=== PATIENT | female | born 1940 | race Caucasian/White ===

== ENCOUNTER 2018-10-22 19:27 | Inpatient (IN) | payer OTHER ==
--- OUTSIDE RECORDS SUMMARY | 2018-10-22 19:29 | XMS REPORT | Clinical Summary ---
:1940 Author Organization [facility] Address [address] [place] [address] Care Team Providers Name Role Phone Agent, Rosalinda Black MD Primary Care Provider Allergies Active Allergy Reactions Severity Noted Date Comments Codeine 03/07/2016 Medications Medication Sig Dispensed Refills Start Date End Date Status rOPINIRole (REQUIP) 2 Take 4 mg by 0 12/26/2015 Active MG tablet mouth every 4 (four) hours as needed (restless syndrome). ZETIA 10 mg tablet Take 10 mg by 0 12/30/2015 Active mouth every morning. ELIQUIS 5 mg tablet Take 5 mg by 0 02/05/2016 Active mouth 2 (two) times a day. Pt takes 1 am and 1 pm atorvastatin Take 40 mg by 0 01/12/2016 Active (LIPITOR) 40 MG mouth nightly. tablet ALPRAZolam (XANAX) Take 0.5 mg by 0 12/22/2015 Active 0.5 MG tablet mouth 2 (two) times a day as needed for anxiety. HYDROcodone-acetamino Take 1-2 tablets 0 03/29/2016 Active phen (NORCO) 10-325 by mouth every 6 mg per tablet (six) hours as needed for pain. allopurinol Take 100 mg by 0 08/16/2016 Active (ZYLOPRIM) 100 MG mouth 3 (three) tablet times a day. furosemide (LASIX) 40 Take 40 mg by 0 08/16/2016 Active mg tablet mouth every morning. MYRBETRIQ 50 mg Take 50 mg by 0 06/04/2016 Active tablet extended mouth every release 24 hr morning. MOVANTIK 25 mg tablet Take 25 mg by 0 08/01/2016 Active tablet mouth daily as needed. ferrous sulfate 325 Take 325 mg by 0 Active (65 FE) MG tablet mouth every morning. amLODIPine (NORVASC) Take 2.5 mg by 0 07/30/2016 Active 2.5 mg tablet mouth daily as needed. If BP > 120 / 80 take insulin lispro Inject 1 Units 0 Active (HumaLOG) 100 unit/mL under the skin injection continuously. Humalog pump. Midnight the range is 1.5 Units/ hr and it switches at 0430 to 1.7 units / hr gabapentin Take 300 mg by 0 11/19/2011 Active (NEURONTIN) 300 mg mouth 4 (four) capsule times a day. PT takes 1 am, 1 noon and 2=dose of 600 mg at night traMADol (ULTRAM) 50 Take 1 tablet 15 tablet 0 12/28/2017 01/02/2018 mg tablet (50 mg total) by mouth every 6 (six) hours as needed for moderate pain for up to 5 days. Active Problems Problem Noted Date Falls 08/25/2016 Weakness 05/31/2016 Urinary tract infection 05/11/2016 Cervical stenosis of spinal canal 04/18/2016 Physical debility 04/18/2016 Transient cerebral ischemia 04/12/2016 Encounters Date Type Specialty Care Team Description 12/28/2017 Emergency Emergency Medicine Amandeep Phillips MD Dislocation of right shoulder joint, initial encounter (Primary Dx); Fall, initial encounter after 10/21/2017 Family History Medical History Relation Name Comments Heart disease Father Hypertension Father Stroke Father Cancer Mother Diabetes Mother Relation Name Status Comments Father Mother Social History Tobacco Use Types Packs/Day Years Used Date Former Smoker Cigarettes 1 15 Quit: 06/01/1967 Tobacco Cessation: Counseling Given: No Alcohol Use Drinks/Week oz/Week Comments No Sex Assigned at Date Recorded Not on file Job Start Date Occupation Industry Not on file Not on file Not on file Travel History Travel Start Travel End No recent travel history available. Last Filed Vital Signs Not on file Plan of Treatment Health Maintenance Due Date Last Done Comments SHINGLES VACCINES (#1) 07/01/1989 65+ PNEUMOCOCCAL VACCINE (1 of 2 - 07/01/2004 PCV13) INFLUENZA VACCINE 09/17/2018 11/22/2015, 12/17/2013, 10/29/2012, Additional history exists Implants Implanted Type Area Voice Over Artist Device Shelf Model / Identifier Expiration Date Serial / Lot Diabetic Diabetic Supplies Supplies Procedures Procedure Name Priority Date/Time Associated Diagnosis Comments XR SHOULDER 2+ VW STAT 12/28/2017 3:16 AM Results for this RIGHT DENTAL INTERNSHIP procedure are in the results section. CT HEAD WO CONTRAST STAT 12/28/2017 3:04 AM Results for this DENTAL INTERNSHIP procedure are in the results section. after 10/21/2017 Results XR Shoulder 2+ Vw Right (12/28/2017 3:16 AM [employer]) Specimen Narrative Performed At EXAMINATION:XR SHOULDER 2VW RIGHT [facility] CLINICAL HISTORY:RT Shoulder Pain COMPARISON:None IMPRESSION: There is a collapsed appearance of the right humeral head with sclerosis, most compatible with underlying avascular necrosis. Humeral head appears to be wedged on the anterior aspect of the glenoid, an appearance compatible with partial dislocation/subluxation. No definite soft tissue swelling is seen. [id number] Procedure Note Interface, Radiology Results Incoming - 12/28/2017 5:38 AM [employer]AL INTERNSHIP EXAMINATION: XR SHOULDER 2 VW RIGHT CLINICAL HISTORY: RT Shoulder Pain COMPARISON: None IMPRESSION: There is a collapsed appearance of the right humeral head with sclerosis, most compatible with underlying avascular necrosis. Humeral head appears to be wedged on the anterior aspect of the glenoid, an appearance compatible with partial dislocation/subluxation. No definite soft tissue swelling is seen. [facility]-[id number] Performing Organization Address City/State/Zipcode Phone Number [facility] [address] [place] [address] CT Head Wo Contrast (12/28/2017 3:04 AM [facility]) Specimen Narrative Performed At EXAMINATION: CT HEAD WO CONTRAST [facility] CLINICAL HISTORY: R O INTRACRANIAL HEMORRHAGE COMPARISON:08/24/2016 TECHNIQUE: Noncontrast enhanced images of the brain were obtained from the skull base to the vertex. Both soft tissue and bone reconstruction algorithms were performed. CT imaging was performed with iterative reconstruction technique and/or automated exposure control to reduce radiation dose. IMPRESSION: No intracranial hemorrhage, mass, mass effect, or herniation. Age-related volume loss is seen as characterized by prominence of cerebral sulci and ventricular systems. Periventricular and subcortical white matter hypodensities are seen, compatible with sequelae of chronic small vessel ischemic disease. Atherosclerotic calcification of intracranial vasculature. No acute osseous abnormalities. Mild mucosal thickening of right maxillary sinus. CONCLUSION: No acute intracranial abnormalities. Chronic age-related changes and sequelae of chronic small vessel ischemic disease. [facility]-[id number] Procedure Note Interface, Radiology Results Incoming - 12/28/2017 4:58 AM D[facility]AL INTERNSHIP EXAMINATION: CT HEAD WO CONTRAST CLINICAL HISTORY: R O INTRACRANIAL HEMORRHAGE COMPARISON: 08/24/2016 TECHNIQUE: Noncontrast enhanced images of the brain were obtained from the skull base to the vertex. Both soft tissue and bone reconstruction algorithms were performed. CT imaging was performed with iterative reconstruction technique and/or automated exposure control to reduce radiation dose. IMPRESSION: No intracranial hemorrhage, mass, mass effect, or herniation. Age-related volume loss is seen as characterized by prominence of cerebral sulci and ventricular systems. Periventricular and subcortical white matter hypodensities are seen, compatible with sequelae of chronic small vessel ischemic disease. Atherosclerotic calcification of intracranial vasculature. No acute osseous abnormalities. Mild mucosal thickening of right maxillary sinus. CONCLUSION: No acute intracranial abnormalities. Chronic age-related changes and sequelae of chronic small vessel ischemic disease. [facility]-[id number] Performing Organization Address City/State/Zipcode Phone Number [facility] [address] [place] [address] after 10/21/2017 Insurance Payer Benefit Plan / Subscriber ID Effective Dates Phone Address Type Group HUMANA MEDICARE HUMANA MEDICARE xxxxxxxxx 2017-Present PPO PPO/PFFS/ERS MCR Advance Directives For more information, please contact: [phone] Type Date Recorded Patient Extruder Operator Multiple Explanation Advance Directives, Living Will 08/24/2016 9:35 PM and Medical Power of Parts Interpreter Code Status Date Activated Date Inactivated Comments Full Code 05/11/2016 10:03 PM 05/13/2016 3:54 PM Code Status decision reached by: Patient Full Code 04/12/2016 10:48 PM 04/18/2016 8:52 PM Code Status decision reached by: Patient
--- OUTSIDE RECORDS SUMMARY | 2018-10-22 19:30 | XMS REPORT ---
:1940 [facility] Address [address] [place] [address] Care Team Providers Name Role Phone Unavailable Unavailable Unavailable Payers Payer Name Policy Type Policy Number Effective Date Expiration Date Problems This patient has no known problems. Allergies, Adverse Reactions, Alerts Allergy Allergy Status Severity Reaction(s) Onset Inactive Treating Comments Name Type Date Date Clinician jayson FISCHER Active NM 2012-09 00:00:0 0 Medications This patient has no known medications. Results Test Description Test Time Test Comments Text Results Atomic Results Result Comments GLUBED 2018-05-29 18:29:00 Test Item Value Reference Range Comments GLUBED (test code=GLUBED) 188 MG/DL 70-110 Performed by certified can closing machine operator at [facility] [id number] 12:35:00 Test Item Value Reference Range Comments GLUBED (test code=GLUBED) 108 MG/DL 70-110 Performed by certified can closing machine operator at [facility] [id number] 08:11:00 Test Item Value Reference Range Comments GLUBED (test code=GLUBED) 91 MG/DL 70-110 Performed by certified can closing machine operator at [facility] [id number] 21:15:00 Test Item Value Reference Range Comments GLUBED (test code=GLUBED) 197 MG/DL 70-110 Performed by certified can closing machine operator at [facility] [id number] 17:38:00 Test Item Value Reference Range Comments GLUBED (test code=GLUBED) 233 MG/DL 70-110 Performed by certified can closing machine operator at [facility] [id number] 13:21:00 Test Item Value Reference Range Comments GLUBED (test code=GLUBED) 190 MG/DL 70-110 Performed by certified can closing machine operator at [facility] [id number] 08:26:00 Test Item Value Reference Range Comments GLUBED (test code=GLUBED) 103 MG/DL 70-110 Performed by certified can closing machine operator at [facility] [id number] 03:57:00 Test Item Value Reference Range Comments GLUBED (test code=GLUBED) 126 MG/DL 70-110 Performed by certified can closing machine operator at [facility] URINALYSIS [id number] 22:10:00 Test Item Value Reference Range Comments UA COLOR (test code=COLU) YELLOW YEL/STRAW UA APPEARANCE (test code=APPU) CLEAR CLEAR UA GLUCOSE DIPSTICK (test code=DGLUU) NEGATIVE NEGATIVE UA BILIRUBIN DIPSTICK (test code=BILU) NEGATIVE NEGATIVE UA KETONE DIPSTICK (test code=KETU) NEGATIVE NEGATIVE UA SPECIFIC GRAVITY (test code=SGU) 1.010 1.005-1.030 UA BLOOD DIPSTICK (test code=MAINE) 1+ NEGATIVE UA PH DIPSTICK (test code=TERA) 5.0 5.0-7.0 UA PROTEIN DIPSTICK (test code=PROU) 2+ NEGATIVE UA UROBILINIOGEN DIPSTICK (test code=URO) 0.2 mg/dL 0.2-1.0 UA NITRITE DIPSTICK (test code=BRIT) NEGATIVE NEGATIVE UA LEUKOCYTE ESTERASE DIPSTICK (test 2+ NEGATIVE code=LEUU) UA WBC (test code=WBCU) 21-50 WBC/HPF 0-3 UA RBC (test code=RBCU) 4-10 RBC/HPF 0-3 UA BACTERIA (test code=BACU) TRACE /HPF NONE SEEN UA SQUAMOUS CELLS (test code=SQU) 0-5 /HPF NONE SEEN [id number] 21:44:00 Test Item Value Reference Range Comments GLUBED (test code=GLUBED) 75 MG/DL 70-110 Performed by certified can closing machine operator at [facility] B-TYPE NATRIURETIC [id number] 20:33:00 Test Item Value Reference Range Comments B-TYPE NATRIURETIC PEPTIDE (test code=BNP) 229.1 PG/ML 0-100 COMPREHENSIVE METABOLIC [id number] 20:12:00 Test Item Value Reference Range Comments SODIUM (test code=NA) 143 mEq/L 134-147 POTASSIUM (test code=K) 4.0 mEq/L 3.4-5.0 CHLORIDE (test code=CL) 112 mEq/L 100-108 CARBON DIOXIDE (test code=CO2) 26 mEq/L 21-33 ANION GAP (test code=GAP) 9 0-20 GLUCOSE (test code=GLU) 103 mg/dL 70-110 BLOOD UREA NITROGEN (test 23 mg/dL 7-18 code=BUN) GLOMERULAR FILTRATION RATE 60.6 70-80 Units of (test code=GFR) measure=ml/min/1.73 m2 CREATININE (test code=CREAT) 0.9 mg/dL 0.6-1.3 TOTAL PROTEIN (test code=PROT) 6.9 g/dL 6.4-8.2 ALBUMIN (test code=ALB) 3.50 g/dL 3.4-5.0 CALCIUM (test code=CA) 8.8 mg/dL 8.0-10.5 BILIRUBIN TOTAL (test 0.40 mg/dL 0.0-1.0 code=BILT) SGOT/AST (test code=AST) 20 IUnit/L 15-37 SGPT/ALT (test code=ALT) 23 IUnit/L 15-65 ALKALINE PHOSPHATASE TOTAL 74 IUnit/L 20-125 (test code=ALKP) CPK-MB [id number] 20:12:00 Test Item Value Reference Range Comments CREATINE KINASE (CK) (test 163 35-232 Result is in INTERNATIONAL code=CK) UNITS/LITER CKMB (test code=CKMBT) 5.7 ng/mL 0-5.0 CUT OFF:>5 ng/mL is suggested as being consistent with AMI. RELATIVE % INDEX (test 3.4 % 0.0-2.5 *CK-MB INTERPRETATION* code=REL%) NORMAL: <5 ng/ml & <2.5% INDEX ABNORMAL: >5 ng/ml & >2.5% INDEX LANDRY ZONE: >5 ng/ml & <2.5% INDEX - SUGGEST CPK ISOENZYME BY ELECTROPHORESIS *PLEASE NOTE* A LOW TOTAL CK MAY CALCULATE TO A FALSELY ELEVATED INDEX. PROTHROMBIN [id number] 20:07:00 Test Item Value Reference Range Comments PROTHROMBIN TIME PATIENT 14.3 SECONDS 9.3-12.9 (test code=PTP) INTERNATIONAL NORMAL RATIO 1.3 0.8-1.2 TARGET INR BY (test code=INR) INDICATION Indication INR1. Prophylaxis of venous thrombosis 2.0 - 3.0 (orthopedic surgery), Prophylaxis of venous thrombosis (other than high-risk surgery), Treatment of Deep Vein Thrombosis/Pulmonary Embolism, Prevention of systemic embolism - Tissue heart valves, Acute Myocardial Infarction (to prevent systemic embolism), Valvular heart disease, Atrial Fibrillation, Bileaflet mechanical valve in aortic position.2. Mechanical prosthetic valves (high risk), 2.5 - 3.5 Presence of Lupus Anticoagulant or Antiphospholipid Antibodies, Prevention of systemic embolism - Acute Myocardial Infarction (to prevent recurrent infarct). THROMBOPLASTIN TIME [id number] 20:07:00 Test Item Value Reference Range Comments THROMBOPLASTIN TIME PARTIAL 35.5 Seconds 25.0-39.5 Therapeutic Range: (test code=PTT) 61.8-83.8 Sec Effective 03/17/2013 - XR CHEST 1 [id number] 19:53:00 FAX: Medhat Osorio DO [place]: St: REG Name: MIRANDA VALERO [facility] : 1940 Age/S: 77/F [address] [place] [address] Unit#: [id number] Loc: JORGE Segura [place] [address] Phys: Medhat Osorio DO Acct: [id number] Dis Date: Status: REG ER PHONE #: [phone] Exam Date: 05/27/20181940 FAX #: [phone] Reason: cp EXAMS: CPT CODE: [id number] XR CHEST 1 V [id number] Clinical Indication : cp Comparison: January 21, 2017 FINDINGS: The frontal chest radiograph shows normal lung volumes. No interstitial or airspace opacities are seen. No pleural effusions are present. No pneumothorax is seen. The heart is enlarged. The trachea is midline. Hardware fusing the cervical spine are present. There are no clinically significant osseous abnormalities noted. IMPRESSION: 1. No chest radiographic evidence of acute cardiopulmonary disease. 2. Stable cardiomegaly. SL: [id number] Electronically Signed by Pat Acosta on 2018 at 1952 Reported and signed by: Josh Acosta M.D. CC: Medhat Osorio DO Technologist: Ginger Lewis, RT(R); Rola Tariq RT(R) Trnscrd Date/Time/By: 05/27/2018 (1952) : By: PolinaLNV Orig Print D/T: S: 05/27/2018 (1956) PAGE 1 Signed ReportTROPONIN-I [id number] 19:43:00 Test Item Value Reference Range Comments TROPONIN-I RAPID (test 0.00 ng/mL 0.00-0.08 Performed by certified can closing machine operator code=TROPIRAP) at [facility] Negative: <=0.08 Positive: >=0.09An elevated troponin value alone is not sufficient todiagnose a myocardial infarction. Rather, the patient sclinical presentation (history, physical exam) and ECGshould be used in conjunction with troponin in thediagnostic evaluation of suspected myocardial infarction. Aserial sampling protocol is recommended to facilitate the identification of temporal changes in troponin levels characteristic of NM. CBC W/AUTO [id number] 19:42:00 Test Item Value Reference Range Comments WHITE BLOOD CELL (test code=WBC) 8.20 x10 3/uL 4.5-11.0 RED BLOOD CELL (test code=RBC) 3.76 x10 6/uL 3.54-5.02 HEMOGLOBIN (test code=HGB) 11.1 g/dL 11.0-15.0 HEMATOCRIT (test code=HCT) 33.3 % 33.0-45.0 MEAN CELL VOLUME (test code=MCV) 88.6 fL 81.0-99.0 MEAN CELL HGB (test code=MCH) 29.5 pg 27.0-33.0 MEAN CELL HGB CONCETRATION (test code=MCHC) 33.3 g/dL 33.0-37.0 RED CELL DISTRIBUTION WIDTH CV (test code=RDW) 14.6 % 11.5-14.5 RED CELL DISTRIBUTION WIDTH SD (test 46.9 fL 37.0-54.0 code=RDW-SD) PLATELET COUNT (test code=PLT) 269 x10 3/uL 150-400 MEAN PLATELET VOLUME (test code=MPV) 10.6 fL 7.0-9.0 NEUTROPHIL % (test code=NT%) 58.6 % 56.0-77.0 IMMATURE GRANULOCYTE % (test code=IG%) 0.4 % 0.0-2.0 LYMPHOCYTE % (test code=LY%) 28.8 % 14.0-32.0 MONOCYTE % (test code=MO%) 8.2 % 4.8-9.0 EOSINOPHIL % (test code=EO%) 3.4 % 0.3-3.7 BASOPHIL % (test code=BA%) 0.6 % 0.0-2.0 NUCLEATED RBC % (test code=NRBC%) 0.0 % 0-0 NEUTROPHIL # (test code=NT#) 4.81 x10 3/uL 2.0-7.6 IMMATURE GRANULOCYTE # (test code=IG#) 0.03 x10 3/uL 0.00-0.03 LYMPHOCYTE # (test code=LY#) 2.36 x10 3/uL 1.0-3.8 MONOCYTE # (test code=MO#) 0.67 x10 3/uL 0.1-0.8 EOSINOPHIL # (test code=EO#) 0.28 x10 3/uL 0.0-0.2 BASOPHIL # (test code=BA#) 0.05 x10 3/uL 0.0-0.2 NUCLEATED RBC # (test code=NRBC#) 0.00 x10 3/uL 0.0-0.1 MANUAL DIFF REQUIRED (test code=MDIFF) NO
--- OUTSIDE RECORDS SUMMARY | 2018-10-22 19:30 | XMS REPORT | Continuity of Care Document ---
:1940 Author Organization [facility] [employer] Care Team Providers Name Role Phone [facility] [employer] Unavailable Unavailable Problems No Data Provided for This Section Medications No Data Provided for This Section Allergies, Adverse Reactions, Alerts No Known Medication Allergies Immunizations No Data Provided for This Section Results No Data Provided for This Section Pathology Reports No Data Provided for This Section Diagnostic Reports No Data Provided for This Section Consultation Notes No Data Provided for This Section Discharge Summaries No Data Provided for This Section History and Physicals No Data Provided for This Section Vital Signs No Data Provided for This Section Encounters Location Location Encounter Encounter Reason Attending ADM DC Status Source Details Type Number For Provider Date Date Visit Outpatient [id number] [facility] 04/01 Active [facility] Outpatient [id number] 05/20 Active [facility] [place] [facility] Outpatient [id number] 05/26 [facility] Krishna CS, Outpatient [id number] [facility] 06/25 [facility] [id number] [facility] 09/24 [facility] Krishna Procedures No Data Provided for This Section Assessment and Plan No Data Provided for This Section Plan of Care No Data Provided for This Section Social History No Data Provided for This Section Family History No Data Provided for This Section Advance Directives No Data Provided for This Section Functional Status No Data Provided for This Section
[2018-10-22] MEDS ORDERED: NA CHLORIDE 0.9% 3,000 ML ONE (19:56)
[2018-10-22 20:11] LABS: Absolute Lymphocytes (CBC) 1.2 K/uL (0.7-4.9); Basophils % 0.8 % (0-1.3); Hematocrit 31.9 % (36.0-45.0); Lymphocytes % 15.6 % (15.3-44.8); MPV 9.3 fL (7.6-11.3); Protime INR 1.55
--- NOTE | 2018-10-22 20:12 | RAD REPORT ---
EXAM DESCRIPTION: RAD - Chest Single View - 10/22/2018 7:58 pm CLINICAL HISTORY: AMS Chest pain. COMPARISON: <Comparisons> FINDINGS: Portable technique limits examination quality. The lungs are grossly clear. The heart is moderately enlarged. No displaced fractures.Cervical hardwa re plate noted. IMPRESSION: No acute intrathoracic process suspected.
[2018-10-22 20:28] LABS: Albumin 3.7 g/dL (3.4-5.0); Bilirubin Direct 0.2 mg/dL (0-0.2); Bilirubin Total 0.6 mg/dL (0.2-1.0); CKMB Creatine Kinase MB 2.2 ng/mL (0.3-3.6); Potassium 4.6 mmol/L (3.5-5.1); Protein, Total 7.1 g/dL (6.4-8.2); Troponin (Emerg Dept Use Only) 0.24 ng/mL (0.0-0.045)
--- NOTE | 2018-10-22 20:50 | ER ---
Nurse's Notes [facility] Name: Lulu Paulson Age: 78 yrs Sex: Female : 1940 Arrival Date: 10/22/2018 Time: 19:34 Bed 2 Private MD: Diagnosis: Altered mental status, unspecified;Fever, unspecified;Shortness of breath Presentation: 10/22 19:35 Presenting complaint: EMS states: they were toned out for report of pt with AMS and bb fever. 19:37 Transition of care: patient was not received from another setting of care. Onset of bb symptoms was October 22, 2018. Risk Assessment: Do you want to hurt yourself or someone else? Patient reports no desire to harm self or others. Initial Sepsis Screen: Does the patient meet any 2 criteria? RR > 20 per min. Temp <36.0*C (96.8*F)) or > 38.3*C (100.9*F). Altered Mental Status. HR > 90 bpm. Yes Does the patient have a suspected source of infection? Yes: Dysuria/Frequency/Urgency/UTI. Care prior to arrival: Medication(s) given: Tylenol, 1 gram of tylenol administered IV IV initiated. 22 GA, in the right antecubital area, Glucose check: 226. 19:37 Method Of Arrival: EMS: [facility] bb 19:37 Acuity: LOUIS 2 bb Historical: - Allergies: 19:45 Codeine; bb - Home Meds: 19:45 Humalog 100 unit/mL Sub-Q soln via insulin pump [Active]; Requip 2 mg Oral tab 1 tab 3 bb times per day [Active]; allopurinol 100 mg Oral tab 1 tab 3 times per day [Active]; alprazolam 0.5 mg Oral tab twice a day [Active]; atorvastatin 40 mg Oral tab 1 tab once daily [Active]; Eliquis 5 mg Oral tab 1 tab 2 times per day [Active]; Entresto 24-26 mg Oral tab twice a day [Active]; ferrous sulfate 325 mg (65 mg iron) Oral tab daily [Active]; furosemide 80 mg Oral tab 1 tab once daily [Active]; gabapentin 300 mg Oral cap 1 cap 3 times per day [Active]; Lipitor 20 mg Oral tab 1 tab once daily [Active]; Lipitor 40 mg Oral tab 1 tab once daily [Active]; Myrbetriq 50 mg Oral Tb24 1 tab once daily [Active]; Potassium Chloride Oral [Active]; ropinirole 2 mg Oral tab up to 2 pills every 4 hours as needed for RLS [Active]; torsemide 100 mg Oral tab 1 tab once daily [Active]; tosemide [Active]; valsartan 160 mg Oral tab once daily [Active]; Xanax 0.5 mg Oral tab as needed [Active]; Zetia 10 mg Oral tab 1 tab once daily [Active]; - PMHx: 19:45 Anxiety; Atrial Fib; chronic back pain; Diabetes - IDDM; Hyperlipidemia; Hypertension; bb lymphedema; - PSHx: 19:45 back; neck; Cholecystectomy; bb - Immunization history:: Adult Immunizations unknown. - Social history:: Smoking status: Patient/guardian denies using tobacco. - Ebola Screening: : No symptoms or risks identified at this time. Screenin:02 Abuse screen: Denies threats or abuse. Denies injuries from another. Nutritional ak1 screening: No deficits noted. Tuberculosis screening: No symptoms or risk factors identified. Fall Risk IV access (20 points). Assessment: 20:02 General: Appears in no apparent distress. comfortable, obese, Behavior is calm, ak1 cooperative, appropriate for age, Smells of urine, pt in urine soaked pants upon arrival. . Pain: Denies pain. Neuro: Level of Consciousness is awake, obeys commands, lethargic, Oriented to person, place, situation, Moves all extremities. Speech is normal. Cardiovascular: Capillary refill < 3 seconds Rhythm is atrial fibrillation. Respiratory: No deficits noted. Airway is patent Trachea midline Respiratory effort is labored, Breath sounds are clear. GI: No signs and/or symptoms were reported involving the gastrointestinal system. : No signs and/or symptoms were reported regarding the genitourinary system. EENT: No signs and/or symptoms were reported regarding the EENT system. Derm: Skin is dry, Skin temperature is hot. Musculoskeletal: No signs and/or symptoms reported regarding the musculoskeletal system. 20:38 GI: insulin pump site to right abd. pump placed on pt's gown at right top. ak1 21:26 Reassessment: Patient appears in no apparent distress at this time. Patient and/or ak1 family updated on plan of care and expected duration. Pain level reassessed. pt son at bedside. pt and son informed of need for admit. Patient states symptoms have improved. 22:26 Reassessment: Patient appears in no apparent distress at this time. No changes from ak1 previously documented assessment. Patient and/or family updated on plan of care and expected duration. Pain level reassessed. Patient states symptoms have improved. Vital Signs: 19:45 BP 138 / 82; Pulse 98; Resp 22 S; Temp 100.1(O); Pulse Ox 97% on R/A; Weight 99.79 kg bb (R); Height 5 ft. 5 in. (165.10 cm) (R); 20:05 BP 147 / 72; Pulse 93; Resp 39; Pulse Ox 99% on R/A; ak1 20:21 BP 142 / 80; Pulse 81; Resp 29; Temp 100.4(C); Pulse Ox 97% on R/A; ak1 20:30 BP 148 / 81; Pulse 82; Resp 29; Temp 99.6; Pulse Ox 98% on R/A; ak1 21:26 BP 156 / 89; Pulse 76; Resp 25; Temp 98.7; Pulse Ox 99% on R/A; ak1 22:26 BP 143 / 68; Pulse 61; Resp 18; Temp 98.0(C); Pulse Ox 98% on R/A; ak1 23:06 BP 144 / 83; Pulse 67; Resp 17; Pulse Ox 99% ; rr5 19:45 Body Mass Index 36.61 (99.79 kg, 165.10 cm) bb ED Course: 19:34 Patient arrived in ED. bb 19:34 Jaswant Shaikh MD is Attending Physician. kdr 19:40 Triage completed. bb 19:40 Inserted saline lock: 20 gauge in right antecubital area, using aseptic technique. ak1 Blood collected. Maintain EMS IV. Dressing intact. Good blood return noted. Site clean \T\ dry. Gauge \T\ site: 22g right AC. 19:45 Arm band placed on Patient placed in an exam room, on a stretcher, on economics instructor, bb on pulse oximetry. EKG completed in triage. Results shown to MD. 19:51 Alayna Almonte, RN is Primary Nurse. ak1 20:00 Initial lab(s) drawn, by vt, sent to lab. First set of blood cultures drawn by me, ak1 Second set of blood cultures drawn by me, EKG done, by ED staff, reviewed by Jaswant Shaikh MD X-ray(s) taken. 20:01 Chest Single View XRAY In Process Unspecified. EDMS 20:02 Patient has correct armband on for positive identification. Placed in gown. Bed in low ak1 position. Call light in reach. Side rails up X2. 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 Pulse ox on. NIBP on. 20:21 Castillo cath inserted, using sterile technique, 16 Fr., by me, balloon inflated, to ak1 gravity drainage, urine specimen collected. 20:47 Maria Chau MD is Hospitalizing Provider. kdr 21:25 CT Head Brain wo Cont In Process Unspecified. EDMS 23:15 No provider procedures requiring assistance completed. Patient admitted, IV remains in ak1 place. Administered Medications: 19:55 Drug: NS 0.9% (30 ml/kg) 30 ml/kg Route: IV; Rate: bolus; Site: right antecubital; ak1 21:44 Follow up: IV Status: Completed infusion; IV Intake: 3000ml ak1 Point of Care Testing: Blood Glucose: 19:44 Blood Glucose: 232 mg/dL; ak1 Ranges: Intake: 21:44 IV: 3000ml; Total: 3000ml. ak1 Output: 23:41 Urine: 850ml (Castillo); Total: 850ml. ak1 Outcome: 20:48 Decision to Hospitalize by Provider. kdr 23:15 Admitted to Med/surg accompanied by tech, family with patient, via stretcher, room 407, ak1 with chart, Report called to Natali 23:15 Condition: stable 23:15 Instructed on the need for admit. 23:54 Patient left the ED. ak1 Signatures: Dispatcher [employer] EDMS Jaswant Shaikh MD MD kdr Candice Novak, RN RN bb Alayna Almonte RN RN ak1 Sharif Montenegro, RN RN rr5
--- NOTE | 2018-10-22 20:50 | EDPHYS ---
Physician Documentation [facility] Name: Lulu Paulson Age: 78 yrs Sex: Female : 1940 Arrival Date: 10/22/2018 Time: 19:34 Bed 2 Private MD: ED Physician Jaswant Shaikh HPI: 10/22 21:20 This 78 yrs old Female presents to ER via EMS with complaints of Altered kdr Mental status and fever. 21:20 The patient presents with confusion. Onset: The symptoms/episode began/occurred at an kdr unknown time. Possible causes: sepsis, the patient has had a history of a fever. Associated signs and symptoms: Pertinent positives: confusion, Pertinent negatives: abdominal pain, agitation, ataxia, blurred vision, chest pain, combativeness, diaphoresis, diarrhea, dizziness, headache, lightheadedness, nausea, numbness, palpitations. Current symptoms: In the emergency department the patient's symptoms have improved, moderately. Patient's baseline: Neuro: alert and fully oriented, Motor: no deficits, Ambulation: walks without assistance. It is unknown whether or not the patient has had similar symptoms in the past. It is unknown whether or not the patient has recently seen a physician. The patient was visiting her son from [facility] when she became ill. Historical: - Allergies: 19:45 Codeine; bb - Home Meds: 19:45 Humalog 100 unit/mL Sub-Q soln via insulin pump [Active]; Requip 2 mg Oral tab 1 tab 3 bb times per day [Active]; allopurinol 100 mg Oral tab 1 tab 3 times per day [Active]; alprazolam 0.5 mg Oral tab twice a day [Active]; atorvastatin 40 mg Oral tab 1 tab once daily [Active]; Eliquis 5 mg Oral tab 1 tab 2 times per day [Active]; Entresto 24-26 mg Oral tab twice a day [Active]; ferrous sulfate 325 mg (65 mg iron) Oral tab daily [Active]; furosemide 80 mg Oral tab 1 tab once daily [Active]; gabapentin 300 mg Oral cap 1 cap 3 times per day [Active]; Lipitor 20 mg Oral tab 1 tab once daily [Active]; Lipitor 40 mg Oral tab 1 tab once daily [Active]; Myrbetriq 50 mg Oral Tb24 1 tab once daily [Active]; Potassium Chloride Oral [Active]; ropinirole 2 mg Oral tab up to 2 pills every 4 hours as needed for RLS [Active]; torsemide 100 mg Oral tab 1 tab once daily [Active]; tosemide [Active]; valsartan 160 mg Oral tab once daily [Active]; Xanax 0.5 mg Oral tab as needed [Active]; Zetia 10 mg Oral tab 1 tab once daily [Active]; - PMHx: 19:45 Anxiety; Atrial Fib; chronic back pain; Diabetes - IDDM; Hyperlipidemia; Hypertension; bb lymphedema; - PSHx: 19:45 back; neck; Cholecystectomy; bb - Immunization history:: Adult Immunizations unknown. - Social history:: Smoking status: Patient/guardian denies using tobacco. - Ebola Screening: : No symptoms or risks identified at this time. ROS: 21:26 Constitutional: Negative for fever, chills, and weight loss, Eyes: Negative for injury, kdr pain, redness, and discharge, ENT: Negative for injury, pain, and discharge, Neck: Negative for injury, pain, and swelling, Cardiovascular: Negative for chest pain, palpitations, and edema, Respiratory: Negative for shortness of breath, cough, wheezing, and pleuritic chest pain, Abdomen/GI: Negative for abdominal pain, nausea, vomiting, diarrhea, and constipation, Back: Negative for injury and pain, : Negative for injury, bleeding, discharge, and swelling, MS/Extremity: Negative for injury and deformity, Skin: Negative for injury, rash, and discoloration, Allergy/Immunology: Negative for hives, rash, and allergies, Endocrine: Negative for neck swelling, polydipsia, polyuria, polyphagia, and marked weight changes, Hematologic/Lymphatic: Negative for swollen nodes, abnormal bleeding, and unusual bruising. 21:26 Neuro: Positive for altered mental status, weakness, Negative for loss of consciousness, seizure activity, speech changes, syncope, near syncope, tinnitus, tremor, visual changes. Exam: 19:44 ECG was reviewed by the Attending Physician. kdr 21:26 Constitutional: This is a well developed, well nourished patient who is awake, alert, kdr and in no acute distress. Head/Face: Normocephalic, atraumatic. Eyes: Pupils equal round and reactive to light, extra-ocular motions intact. Lids and lashes normal. Conjunctiva and sclera are non-icteric and not injected. Cornea within normal limits. Periorbital areas with no swelling, redness, or edema. Neck: Trachea midline, no thyromegaly or masses palpated, and no cervical lymphadenopathy. Supple, full range of motion without nuchal rigidity, or vertebral point tenderness. No Meningismus. Chest/axilla: Normal chest wall appearance and motion. Nontender with no deformity. No lesions are appreciated. Cardiovascular: Regular rate and rhythm with a normal S1 and S2. No gallops, murmurs, or rubs. Normal PMI, no JVD. No pulse deficits. Respiratory: Lungs have equal breath sounds bilaterally, clear to auscultation and percussion. No rales, rhonchi or wheezes noted. No increased work of breathing, no retractions or nasal flaring. Abdomen/GI: Soft, non-tender, with normal bowel sounds. No distension or tympany. No guarding or rebound. No evidence of tenderness throughout. Back: No spinal tenderness. No costovertebral tenderness. Full range of motion. Skin: Warm, dry with normal turgor. Normal color with no rashes, no lesions, and no evidence of cellulitis. MS/ Extremity: Pulses equal, no cyanosis. Neurovascular intact. Full, normal range of motion. Neuro: Awake and alert, GCS 15, oriented to person, place, time, and situation. Cranial nerves II-XII grossly intact. Motor strength 5/5 in all extremities. Sensory grossly intact. Cerebellar exam normal. Normal gait. Psych: Awake, alert, with orientation to person, place and time. Behavior, mood, and affect are within normal limits. Vital Signs: 19:45 BP 138 / 82; Pulse 98; Resp 22 S; Temp 100.1(O); Pulse Ox 97% on R/A; Weight 99.79 kg bb (R); Height 5 ft. 5 in. (165.10 cm) (R); 20:05 BP 147 / 72; Pulse 93; Resp 39; Pulse Ox 99% on R/A; ak1 20:21 BP 142 / 80; Pulse 81; Resp 29; Temp 100.4(C); Pulse Ox 97% on R/A; ak1 20:30 BP 148 / 81; Pulse 82; Resp 29; Temp 99.6; Pulse Ox 98% on R/A; ak1 21:26 BP 156 / 89; Pulse 76; Resp 25; Temp 98.7; Pulse Ox 99% on R/A; ak1 22:26 BP 143 / 68; Pulse 61; Resp 18; Temp 98.0(C); Pulse Ox 98% on R/A; ak1 23:06 BP 144 / 83; Pulse 67; Resp 17; Pulse Ox 99% ; rr5 19:45 Body Mass Index 36.61 (99.79 kg, 165.10 cm) bb MDM: 20:48 Patient medically screened. kdr 21:26 Data reviewed: vital signs, nurses notes, lab test result(s). kdr 10/22 19:35 Order name: Basic Metabolic Panel; Complete Time: 20:41 kdr 10/22 19:35 Order name: Blood Culture Adult (2) kdr 10/22 19:35 Order name: CBC with Diff; Complete Time: 20:41 kdr 10/22 19:35 Order name: Ckmb; Complete Time: 20:41 kdr 10/22 19:35 Order name: CPK; Complete Time: 20:41 kdr 10/22 19:35 Order name: Lactate; Complete Time: 20:41 kdr 10/22 19:35 Order name: LFT's; Complete Time: 20:41 kdr 10/22 19:35 Order name: Lipase; Complete Time: 20:41 kdr 10/22 19:35 Order name: Procalcitonin; Complete Time: 21:25 kdr 10/22 19:35 Order name: Protime (+inr); Complete Time: 20:41 kdr 10/22 19:35 Order name: Ptt, Activated; Complete Time: 20:41 kdr 10/22 19:35 Order name: Troponin (emerg Dept Use Only); Complete Time: 20:41 kdr 10/22 19:35 Order name: Urine Microscopic Only; Complete Time: 21:25 kdr 10/22 20:34 Order name: Urine Dipstick--Ancillary (enter results); Complete Time: 21:25 ar5 10/22 22:46 Order name: CBC with Automated Diff EDMS 10/22 22:46 Order name: CBC with Automated Diff EDMS 10/22 22:46 Order name: Comprehensive Metabolic Panel EDMS 10/22 22:46 Order name: Comprehensive Metabolic Panel EDMS 10/22 22:46 Order name: Lipid Profile EDMS 10/22 22:46 Order name: Lipid Profile EDMS 10/22 22:46 Order name: Magnesium EDMS 10/22 22:46 Order name: Magnesium EDMS 10/22 22:46 Order name: Phosphorus EDMS 10/22 22:46 Order name: Phosphorus EDMS 10/22 22:46 Order name: Sedimentation Rate, [place] EDMS 10/22 22:46 Order name: Sedimentation Rate, [place] EDMS 10/22 22:46 Order name: T4,Total EDMS 10/22 22:47 Order name: T4,Total EDMS 10/22 22:47 Order name: Thyroid Stimulating Hormone EDMS 10/22 22:47 Order name: Thyroid Stimulating Hormone EDMS 10/22 19:35 Order name: Chest Single View XRAY; Complete Time: 20:41 kdr 10/22 19:35 Order name: Accucheck; Complete Time: 19:52 kdr 10/22 19:35 Order name: Cardiac monitoring; Complete Time: 19:53 kdr 10/22 19:35 Order name: EKG - Nurse/Tech; Complete Time: 19:52 kdr 10/22 19:35 Order name: IV Saline Lock - Large Bore; Complete Time: 19:52 kdr 10/22 19:35 Order name: Labs collected and sent; Complete Time: 19:52 kdr 10/22 19:35 Order name: O2 Per Protocol; Complete Time: 19:52 kdr 10/22 19:35 Order name: O2 Sat Monitoring; Complete Time: 19:53 kdr 10/22 19:35 Order name: Urine Dipstick-Ancillary (obtain specimen); Complete Time: 20:40 kdr 10/22 20:44 Order name: CT Head Brain wo Cont kdr 10/22 22:45 Order name: Physical Therapy Consult EDPR 10/22 22:45 Order name: Speech Therapy Consult EDPR 10/22 22:45 Order name: NPO EDMS 10/22 22:45 Order name: NPO EDMS 10/22 22:45 Order name: NPO EDMS 10/22 22:45 Order name: Echo with Doppler EDMS 10/22 22:45 Order name: EKG Electrocardiogram EDMS 10/22 22:47 Order name: Troponin I EDMS 10/22 22:47 Order name: Troponin I EDMS 10/22 22:47 Order name: Troponin I EDMS 10/22 22:47 Order name: Stroke Protocol [facility] 10/22 22:49 Order name: Chest Pa And Lat (2 Views) [facility] 10/22 22:49 Order name: Carotid Artery Bilateral [facility] 10/22 22:49 Order name: Carotid Artery Bilateral [facility] EC:44 Rate is 93 beats/min. Rhythm is irregularly irregular, A fib with No ectopy. QRS [place] kdr is Normal. QRS interval is normal. QT interval is normal. No Q waves. T waves are Normal. Clinical impression: Atrial Fibrillation. Administered Medications: : Drug: NS 0.9% (30 ml/kg) 30 ml/kg Route: IV; Rate: bolus; Site: right antecubital; ak1 21:44 Follow up: IV Status: Completed infusion; IV Intake: 3000ml ak1 Point of Care Testing: Blood Glucose: : Blood Glucose: 232 mg/dL; ak1 Ranges: Critical Glucose Levels:Adult <50 mg/dl or >400 mg/dl <40 mg/dl or >180 mg/dl Disposition: 10/22/18 20:48 Hospitalization ordered by Maria Chau for Inpatient Admission. Preliminary diagnosis are Altered mental status, unspecified, Fever, unspecified, Shortness of breath. - Bed requested for Telemetry/MedSurg (Inpatient). - Status is Inpatient Admission. ak1 - Condition is Serious. - Problem is new. - Symptoms have improved. UTI on Admission? No Signatures: Dispatcher [employer] [facility] Jaswant Shaikh MD MD kdr Candice Novak RN RN bb Alayna Almonte RN RN ak1 Skye Zambrano RN RN cg Corrections: (The following items were deleted from the chart) 23:04 20:48 Hospitalization Ordered by Maria Chau MD for Inpatient Admission. Preliminary cg diagnosis is Altered mental status, unspecified; Fever, unspecified; Shortness of breath. Bed requested for Telemetry/MedSurg (Inpatient). Status is Inpatient Admission. Condition is Serious. Problem is new. Symptoms have improved. UTI on Admission? No. kdr 23:54 23:04 10/22/2018 20:48 Hospitalization Ordered by Maria Chau MD for Inpatient ak1 Admission. Preliminary diagnosis is Altered mental status, unspecified; Fever, unspecified; Shortness of breath. Bed requested for Telemetry/MedSurg (Inpatient). Status is Inpatient Admission. Condition is Serious. Problem is new. Symptoms have improved. UTI on Admission? No. cg
[2018-10-22 21:04] LABS: Urine Blood TRACE (NEG); Urine Glucose NEGATIVE (NEG); Urine Protein 3+ (NEG); Urine pH 5.5 (5.0-7.0)
[2018-10-22 21:10] LABS: Urine Bacteria <20 /HPF (<20); Urine Culture Reflex Order NOT NEEDED; Urine RBC <5 /HPF (NONE SEEN)
[2018-10-22] MEDS ORDERED: ONDANSETRON 4 MG/2 ML VIAL IV PRN (22:25)
[2018-10-22] MEDS ORDERED: CEFTRIAXONE 1 GM/NS 50 ML 1 GM/50 ML BAG IV ONE (22:25)
[2018-10-22] MEDS ORDERED: ACETAMINOPHEN 500 MG TAB PO PRN (22:25)
[2018-10-23 00:29] VITALS: BMI 38.5
[2018-10-23] MEDS: NA CHLORIDE 0.9% 1,000 ML IV SCH ×2 (00:30→14:04)
[2018-10-23] MEDS ORDERED: CEFTRIAXONE/SWI 1gm 1 GM/10 ML SYR ONE (01:04)
[2018-10-23 01:27] VITALS: O2SAT 99
[2018-10-23] MEDS ORDERED: ROPINIROLE HCL 1 MG TAB PO ONE (02:30)
[2018-10-23 06:18] LABS: Absolute Lymphocytes (CBC) 2.5 K/uL (0.7-4.9); Basophils % 0.4 % (0-1.3); Hematocrit 27.4 % (36.0-45.0); Lymphocytes % 36.6 % (15.3-44.8); MPV 9.2 fL (7.6-11.3)
--- NOTE | 2018-10-23 06:47 | P.HP ---
Certification for Inpatient Patient admitted to: Inpatient With expected LOS: >2 Midnights Patient will require the following post-hospital care: None Practitioner: I am a practitioner with admitting privileges, knowledge of patient current condition, hospital course, and medical plan of care. Services: Services provided to patient in accordance with Admission requirements found in Title 42 Section 412.3 of the Code of Federal Regulations Patient History Date of Service: 10/23/18 Reason for admission: Altered mental status History of Present Illness: Patient is a 78-year-old female who came into the hospital with altered mental status. According to the son her mentation was normal around 4:00 p.m.. He came all for work around 5 o'clock and noticed she had aphasia. She was not making a lot of sense to him and he decided to bring her into the emergency room because he felt she may be having a stroke. She was also told by his father that she gets this way when she has urinary tract infections. She was worked up in the emergency room. She was found have atrial fibrillation. She also had an elevated troponin. We ordered a CT of the brain which was negative. She will be admitted to the hospital for further evaluation. At this time will go ahead and start IV antibiotics pending culture results. Also pending chest x-ray finding. Allergies codeine Allergy (Verified 08/10/16 21:59) Unknown Home Medications: Allopurinol 1 tab PO TID 08/11/16 Apixaban [Eliquis] 1 tab PO BID 08/11/16 Atorvastatin Calcium 1 tab PO DAILY 08/11/16 Ezetimibe [Zetia] 1 tab PO DAILY 08/11/16 Ferrous Sulfate 1 tab PO DAILY 08/11/16 Gabapentin [Neurontin*] 1 tab PO TID 08/11/16 Insulin Lispro [Humalog*] 100 unit SQ DAILY 08/11/16 Mirabegron [Myrbetriq] 1 tab PO DAILY 08/11/16 Ropinirole HCl 2 tab PO Q4H PRN 08/11/16 Valsartan 1 tab PO DAILY 08/11/16 Furosemide [Lasix] 40 mg PO DAILY #30 tablet 08/12/16 - Past Medical/Surgical History Has patient received pneumonia vaccine in the past: Yes Diabetic: Yes -: AFIB -: DM -: HTN -: LYMPHEDEMA (BLE) -: CHRONIC BACK PAIN -: BACK SX -: NECK SX -: MALOU - Family History Father Medical History: Heart disease, Stroke Mother Medical History: Cancer Notes: liver cancer - Social History Smoking Status: Former smoker Alcohol use: No CD- Drugs: No Caffeine use: Yes Place of Residence: Home Review of Systems 10-point ROS is otherwise unremarkable Physical Examination - Vital Signs Temperature: 97.2 F Blood Pressure: 110/52 Pulse: 82 Respirations: 20 Pulse Ox (%): 98 - Physical Exam General: Alert, In no apparent distress, Oriented x3 HEENT: Atraumatic, PERRLA, Mucous membr. moist/pink, EOMI, Sclerae nonicteric Neck: Supple, 2+ carotid pulse no bruit, No LAD, Without JVD or thyroid abnormality Respiratory: Clear to auscultation bilaterally, Normal air movement Cardiovascular: Regular rate/rhythm, Normal S1 S2, No murmurs Gastrointestinal: Normal bowel sounds, Soft and benign, Non-distended, No tenderness, No rebound, No guarding Musculoskeletal: No clubbing, No swelling, Tenderness (Right shoulder tender with decreased range of motion) Integumentary: No rashes Neurological: Normal speech, Normal tone, Sensation intact, Cranial nerves 3-12 intact, Normal affect, Abnormal gait, Abnormal strength Lymphatics: No axilla or inguinal lymphadenopathy - Studies Laboratory Data (last 24 hrs) 10/22/18 19:40: PT 18.0 H, INR 1.55, APTT 33.7 10/22/18 19:40: WBC 7.7, Hgb 10.8 L, Hct 31.9 L, Plt Count 240 10/22/18 19:40: Sodium 138, Potassium 4.6, BUN 41 H, Creatinine 1.24, Glucose 189 H, Total Bilirubin 0.6, AST 15, ALT 18, Alkaline Phosphatase 76, Lipase 64 L Assessment & Plan - Problems (Diagnosis) (1) Altered mental status Current Visit: Yes Status: Acute (2) History of recurrent UTIs Current Visit: Yes Status: Acute (3) History of TIAs Current Visit: Yes Status: Acute (4) Atrial fibrillation Current Visit: Yes Status: Acute (5) Elevated troponin Current Visit: Yes Status: Acute (6) Type 2 diabetes mellitus Current Visit: Yes Status: Acute (7) Hypertension Current Visit: Yes Status: Acute Qualifiers: Hypertension type: essential hypertension Qualified Code(s): I10 - Essential (primary) hypertension - Plan Plan: 1. IV hydration 2. IV antibiotics 3. Carotid Doppler, echocardiogram, MRI of the brain 4. Anti-platelet therapy and statin therapy 5. DVT prophylaxis 6. PT and speech therapy evaluation 7. Lipid profile in the morning 8. Strict blood pressure and blood sugar control 9. GI and DVT prophylaxis Discharge Plan: Home Plan to discharge in: 48 Hours - Advance Directives Does patient have a Living Will: No Does patient have a Durable POA for Healthcare: No - Code Status/Comfort Care Code Status Assessed: Yes Code Status: Full Code Critical Care: No Time Spent Managing PTS Care (In Minutes): 50
--- NOTE | 2018-10-23 06:58 | RAD REPORT ---
EXAM DESCRIPTION: RAD - Chest Single View - 10/23/2018 6:44 am CLINICAL HISTORY: Shortness of breath, Stroke protocol chest film COMPARISON: October 22 TECHNIQUE: AP portable chest image was obtained 0641 hours . FINDINGS: No consolidation, mass or significant failure finding. Lung markings or only fractionally increased over comparison. Trachea is midline. Heart and vasculature are normal. No measurable pleura l effusion and no pneumothorax. No acute bony abnormality seen. No acute aortic findings suspected. IMPRESSION: No focal lung parenchymal process and no significant failure or volume overload. Lung markings are minimally prominent compared to the prior day study. Early interstitial edema or in filtrate are possible and patient can be monitored as clinical findings warrant.
[2018-10-23 07:41] LABS: Bilirubin Total 0.4 mg/dL (0.2-1.0); Magnesium 1.7 mg/dL (1.8-2.4); Potassium 3.9 mmol/L (3.5-5.1); Protein, Total 5.7 g/dL (6.4-8.2); T4,Total 6.8 ug/dL (4.8-13.9); Thyroid Stimulating Hormone 0.852 uIU/mL (0.360-3.740)
--- NOTE | 2018-10-23 08:24 | EKG ---
Test Date: 2018-10-22 Test Time: 19:40:[address] Judge: YOANA MEASUREMENT RESULTS: Intervals: Rate: 93 RI: QRSD: 66 QT: 346 QTc: 430 Cyrus: P: RI: QRS: 1 T: 60 INTERPRETIVE STATEMENTS: Atrial fibrillation Low voltage QRS Abnormal ECG Compared to ECG 08/10/2016 16:31:22 no significant change from previous ECG Electronically Signed On 10-23-18 08:24:03 CDT by Glen Viera
[2018-10-23] MEDS ORDERED: CEFTRIAXONE 1 GM/NS 50 ML 1 GM/50 ML BAG IV SCH ×2 (09:00→23:00)
[2018-10-23] MEDS ORDERED: ENOXAPARIN 40 MG/0.4 ML SQ SCH (09:00)
--- NOTE | 2018-10-23 10:30 | CON ---
History Of Present Illness: Ms. Paulson is 78. She was at her grandson's house. It was late afterno on when she had a sudden change in her mental status. There was no chest pain. She was brought to [facility] emergency room. She was either confused or obtunded and a little unclear, but it does not seem sh clayton was comatose. She has received ceftriaxone and this morning has had normal mental status. Ms. Arash guevara has a history of atrial fib for more than 5 years. She takes Eliquis 5 mg b.i.d. for that. She is followed by Dr. Delgado, line erector in the [facility] area. About a year ago, a stress test was normal. She has never had a cardiac catheterization, stent, or any vascular surgery. She does n ot use tobacco. When she came to the hospital, her initial vital signs were blood pressure 138/82, p ulse 98, temperature 100.1, weight 99.8 kg, 5 feet 5 inches. Outpatient Medications: Have been an insulin pump, Requip, allopurinol, alprazolam, atorvastatin 40, Eliquis 5 b.i.d., Entresto one tablet twice a day, Lasix 80 mg per day, gabapentin 300 mg 3 ti mes a day, Lipitor, Myrbetriq 50, potassium chloride unknown dose, ropinirole, torsemide, valsartan, Zetia. Past Medical History: She has chronic AFib, diabetes, dyslipidemia, hypertension, history of cholecy stectomy, and back and neck surgery. Social History: There is no history of tobacco use. Physical Examination: General: She is 5 feet 5 inches, 231 pounds, obese, alert, oriented, pleasant, not in distress. Lungs: Clear. Heart: Irregular, but otherwise within normal limits. Vital Signs: Blood pressure 110/52, temperature 97.2. Assessment/plan: Her UA would not suggest a urinary tract infection. Her chest x-ray would not sugg est pneumonia, so the cause of her temperature elevation when she first came in is unknown. She has a sedimentation rate of 42. The procalcitonin level is 0.05. So I am really not sure of the cause o f the altered mental status and the fever. We have troponins that are elevated, one at 0.24, one at 0.36. Her electrocardiogram does not show infarction, injury, or ischemia. We have to wonder if an acute MD was the cause for altered mental status. In any event, I think she probably does need to melo ve a heart catheterization and echo. Since she is a patient of Dr. Delgado, we will try and reach him, and talk with the family about this. Our lab rn is not available to do anything before October 26, so a transfer is probably better. I would encourage Dr. Sales to contact Dr. Delgado to see if he w ants to transfer her if it is okay with the patient, in fact. IMANI/REJI Voice ID: [id number] Report ID: [id number]
--- NOTE | 2018-10-23 11:11 | RAD REPORT ---
EXAM DESCRIPTION: CT - Head Brain Wo Cont - 10/22/2018 9:45 pm CLINICAL HISTORY: 78 years Female CONFUSED COMPARISON: None TECHNIQUE: Contiguous axial images of the brain were obtained without the administration of intraven ous contrast.This exam was performed according to our departmental dose-optimization program which in cludes use of Automated Exposure Control, adjustment of the mA and/or kV according to patient size an d/or use of iterative reconstruction technique. FINDINGS: Brain: No acute intracranial hemorrhage. No extra-axial collection. No mass effect or summer iation. Mild prominence of the sulci and cisterns Confluent periventricular and subcortical white m atter hypodensity is noted. Ventricles: Prominent without hydrocephalus.. Globes and orbits: Prior cataract surgery. No acute abnormality. Bones: No acute osseous finding. Paranasal sinuses: Paranasal sinuses are clear.. Mastoid air cells: Well pneumatized. Soft tissues: Within normal limits IMPRESSION: No acute intracranial hemorrhage, hydrocephalus or herniation. Cerebral volume loss and chronic small vessel ischemic changes. If persistent clinical concern for ac [place] ischemia, consider MRI brain without contrast for further evaluation. Electronically signed by: Eduardo Penny DO 10/22/2018 9:38 PM CDT Due to temporary technical issues with the PACS/Fluency reporting system, reports are being signed by the in house radiologist as a courtesy to ensure prompt reporting. The interpreting radiologist is f ully responsible for the content of the report.
[2018-10-23 12:50] VITALS: BP 140/64; TEMP 97.6
--- NOTE | 2018-10-23 13:54 | ECHO ---
HEIGHT: 5 ft 5 in WEIGHT: 231 lb 9.6 oz DATE OF STUDY: 10/23/[address]: Maria Chau MD 2-DIMENSIONAL: YES M.MODE: YES DOPPLER: YES COLOR FLOW: YES TDS: NO PORTABLE: NO DEFINITY: NO BUBBLE STUDY: NO DIAGNOSIS: STROKE CARDIAC HISTORY: CATHERIZATION: NO SURGERY: NO PROSTHETIC VALVE: NO PACEMAKER: NO MEASUREMENTS (cm) DIASTOLIC (NORMALS) SYSTOLIC (NORMALS) IVSd 1.3 (0.6-1.2) LA Diam 3.5 (1.9-4.0) LVEF 66% LVIDd 4.6 (3.5-5.7) LVIDs 2.9 (2.0-3.5) %FS 36% LVPWd 1.4 (0.6-1.2) Ao Diam 2.7 (2.0-3.7) 2 DIMENSIONAL ASSESSMENT: RIGHT ATRIUM: NORMAL LEFT ATRIUM: DILATED RIGHT VENTRICLE: NORMAL LEFT VENTRICLE: LEFT VENTRICULAR HYPERTROPHY TRICUSPID VALVE: NORMAL MITRAL VALVE: NORMAL PULMONIC VALVE: NORMAL AORTIC VALVE: SCLEROSIS PERICARDIAL EFFUSION: NONE AORTIC ROOT: DILATED ASCENDING AORTA LEFT VENTRICULAR WALL MOTION: NORMAL. DOPPLER/COLOR FLOW: MILD MITRAL REGURGITATION. MILD-MODERATE TRICUSPID REGURGITATION. MODERATE PULMONARY HYPERTENSION ESTIMATED RIGHT VENTRICULAR SYSTOLIC PRESSURE 50mmHg. COMMENTS: NORMAL LEFT VENTRICULAR EJECTION FRACTION. LEFT VENTRICULAR HYPERTROPHY. DILATED LEFT ATRIUM. AORTIC SCLEROSIS WITH NO AORTIC STENOSIS OR AORTIC REGURGITATION. MILD MITRAL REGURGITATION. MILD-MODERATE TRICUSPID REGURGITATION. MODERATE PULMONARY HYPERTENSION. TECHNOLOGIST: RAJNI DORADO
--- NOTE | 2018-10-23 15:25 | RAD REPORT ---
EXAM DESCRIPTION: MRI - MRA Head Wo Cont - 10/23/2018 3:05 pm CLINICAL HISTORY: cva COMPARISON: None. TECHNIQUE: Magnetic resonance angiogram was performed. 3D MIPS reconstruction performed FINDINGS: The anterior cerebral, middle cerebral, posterior cerebral, distal internal carotid and ba silar arteries do not demonstrate a significant stenosis. 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
--- NOTE | 2018-10-23 15:31 | RAD REPORT ---
EXAM DESCRIPTION: MRI - MRA Neck W/Wo Cont - 10/23/2018 3:07 pm CLINICAL HISTORY: cav COMPARISON: None. TECHNIQUE: Magnetic resonance angiogram of the neck was performed. 19 cc MultiHance was administered intravenously. 3D MIPS reconstruction performed FINDINGS: The common carotid, internal carotid and external carotid arteries do not demonstrate a si gnificant stenosis. The left vertebral artery is dominant. The right vertebral artery is hypoplastic and appears to termi danyelle into the PICA IMPRESSION: No significant disease NASCET criteria used. Mild 0-49% stenosis Moderate 50-69% stenosis Severe 70-99% stenosis
--- NOTE | 2018-10-23 15:34 | RAD REPORT ---
EXAM DESCRIPTION: MRI - Brain W/Wo Cont - 10/23/2018 3:08 pm CLINICAL HISTORY: CVA COMPARISON: October 22, [address] TECHNIQUE: Axial, sagittal, and coronal magnetic images of the brain were obtained. 20 cc MultiHance administered intravenously FINDINGS: Mild to moderate signal within periventricular, deep and subcortical white matter probably ischemic changes secondary to small vessel disease The ventricles are normal in caliber. Diffusion-weighted/ ADC mapping sequences do not demonstrate evidence of an acute infarction. No abnormal enhancement within the brain is seen. An extra-axial fluid collection is not noted. Fluid within the sinuses/mastoids is not seen IMPRESSION: No acute abnormality displayed Refer to the MRA head report for additional findings
--- NOTE | 2018-10-23 16:24 | RAD REPORT ---
EXAM DESCRIPTION: USCarotid Artery Bilateral10/23/2018 3:57 pm CLINICAL HISTORY: cva COMPARISON: None FINDINGS: The velocity of the right internal carotid artery equals 48 cm/sec. The right ICA/CCA rati o 1 The velocity of the left internal carotid artery equals 66 cm/sec. The left ICA/CCA ratio 1.3 Mild plaque is present within the carotid arteries. The vertebral arteries demonstrate antegrade flow IMPRESSION: Mild plaque within the carotid arteries without evidence of a hemodynamically significan t stenosis NASCET criteria used. Mild 0-49% stenosis Moderate 50-69% stenosis Severe 70-99% stenosis
[2018-10-23] MEDS ORDERED: CEFTRIAXONE/SWI 1gm 1 GM/10 ML SYR IV SCH (21:00)
--- NOTE | 2018-10-24 05:18 | DS ---
Date of Discharge: 10/23/2018 Consultants: Dr. Viera with Cardiology. Discharge Diagnoses: 1.Acute metabolic encephalopathy, resolving. 2.Yad-JN-fgnfyndei myocardial infarction. 3.History of recurrent urinary tract infections. 4.Chronic atrial fibrillation with controlled ventricular rate. 5.History of transient ischemic attacks. 6.Type 2 diabetes mellitus, insulin requiring with hyperglycemia. 7.Hypomagnesemia. 8.Essential hypertension. 9.Obesity. 10.Chronic back pain, on gabapentin. Hospital Course: The patient is a 78-year-old female who was admitted to the hospital for altered me ntal status. The patient did have fever. CT of the brain was done, which was negative. Thought to be the UTI; however, UA is unconvincing. No other source of infection apparent. Chest x-ray showed no acute process. Patient did have NSTEMI as well. EKG did not show any acute ST elevation or mcarthur es of infarction. Patient was seen by a barn boss, Dr. Viera, who recommended echocardiogram and heart catheterization, given her comorbid conditions and history. However, due to the labor utilization superintendent nevaehin g down for maintenance, we were unable to perform catheterization. He recommended transfer to either Dr. Delgado at [facility] who is the patient's primary barn boss or elsewhere. Family was contacte d including the son, Terrell Paulson, who agreed with transfer including the patient. [facility] and [facility] initiated to [facility], however, they have no beds at this time. Therefore, transfer was initiated to [facility]. Spoke with barn boss, Dr. Madison, who a ccepted the patient. The patient will be transferred once bed is available. Medications: As per medication reconciliation list. Time Spent: Total time spent transferring the patient was 42 minutes. Physical Examination: General: Awake, alert, oriented x3. Obese female, elderly. CV: S1, S2, irregularly irregular. Peripheral pulses present. Respiratory: Moving air well bilaterally. No wheezing. Gastrointestinal: Abdomen is soft, nontender, nondistended. Positive bowel sounds. Extremities: No clubbing, cyanosis, or edema. Neurologic: Nonfocal. Alert and oriented x3. Code Status: Full. SA/MODL Voice ID: [id number] Report ID: [id number]
== END 2018-10-23 19:45 | disposition short-term general hospital (02) | DRG 70 ==
LOC: ER 19:27 → ERHOLD 22:26 → 4TH 23:33
PROVIDERS: ADMIT Hospitalist; ATTEND Hospitalist
DX: G93.41 Metabolic encephalopathy (principal); I21.4 Non-ST elevation (NSTEMI) myocardial infarction; I48.2 Chronic atrial fibrillation; E11.65 Type 2 diabetes mellitus with hyperglycemia; E83.42 Hypomagnesemia; I10 Essential (primary) hypertension; E66.9 Obesity, unspecified; Z68.38 Body mass index [BMI] 38.0-38.9, adult; M54.9 Dorsalgia, unspecified; Z87.440 Personal history of urinary (tract) infections; Z86.73 Personal history of transient ischemic attack (TIA), and cerebral infarction without residual deficits
CPT/HCPCS: 36415; 51702; 70450; 70544; 70549; 70553; 71045; 80048; 80053; 80061; 80076; 81003; 81015; 82550; 82553; 82962; 83605; 83690; 83735; 84100; 84145; 84436; 84443; 84484; 85025; 85610; 85652; 85730; 87040; 92610; 93005; 93306; 93880; 96360; 96361; 96365; 96366; 97116; 97161; 97530; 99285; A9577; J0696; J7030